=== PATIENT | female | born 1995 | race African-American/Black ===

== ENCOUNTER → 2023-03-12 | Emergency (ER) | payer OTHER ==
[~2023-03-12] VITALS: Ht 175.3 cm; Wt 68.0 kg
== END | disposition left against medical advice (07) ==
LOC: ER 05:30
DX: S01.81XA Laceration without foreign body of other part of head, initial encounter (principal); W18.39XA Other fall on same level, initial encounter; Y93.89 Activity, other specified; Y92.89 Other specified places as the place of occurrence of the external cause; Y99.9 Unspecified external cause status